=== PATIENT | female | born 1960 | race Caucasian/White ===

== ENCOUNTER 2024-08-16 16:21 | Emergency (ER) | payer OTHER ==
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
[2024-08-16 18:25] VITALS: BP 177/98; PULSE 82; RESP 19; TEMP 98.5
== END 2024-08-16 18:28 | disposition home or self-care (01) ==
LOC: EC 16:21
DX: S20.212A Contusion of left front wall of thorax, initial encounter (principal); F17.200 Nicotine dependence, unspecified, uncomplicated; V89.2XXA Person injured in unspecified motor-vehicle accident, traffic, initial encounter; Y92.410 Unspecified street and highway as the place of occurrence of the external cause
CPT/HCPCS: 99284